=== PATIENT | female | born 1990 | race Caucasian/White ===

== ENCOUNTER 2024-03-09 19:12 | Emergency (ER) | payer BC, SELFPAY ==
[2024-03-09 19:13] VITALS: BP 109/72
[2024-03-09 20:00] VITALS: BP 110/88
--- NOTE | 2024-03-09 20:09 | ED.GENMED ---
History of Present Illness
General
Chief Complaint: Headache
Time Seen by Provider: 03/09/24 19:38
History of Present Illness
History of Present Illness:
Patient is a 34-year-old woman with history of migraines presenting to the emergency department with a headache. Patient states that about 1-1/2 weeks ago she had a medical and since then has been having some recurrent migraines. She does
state that they are due usually to hormone issues. This morning she woke up with a typical migraine that slowly worsened throughout the day. It is behind both her eyes. Some some nausea photophobia phonophobia. She did vomit a few times. No
fevers or chills. No neck pain. No numbness tingling. No weakness. No vision changes. No chest pain shortness of breath. She does state that the medical will successful and did have follow-up appointments. She did take her abortive
medication at home however it did not help the pain.
Past History
Past History
ED Past Medical History: Other (Migraine headaches); Negative Asthma, HTN, Hypercholesterolemia or NIDDM
ED Past Surgical History: None
Social History
Tobacco: Former smoker
Alcohol: None
Personal: Single
Living: alone
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
Phy Exam
Physical Exam
Physical Exam:
GENERAL: Lying under a blanket with eyes closed
HEENT: normocephalic, extraocular movements intact, moist oral mucosa
NECK: normal inspection
RESPIRATORY: no respiratory distress, clear to auscultation bilaterally
CARDIOVASCULAR: regular rate and rhythm
ABDOMEN/: soft, non-distended, non-tender to palpation, no rebound or guarding
EXTREMITIES: non-tender, no edema/swelling
NEUROLOGIC: alert and oriented x 3, cranial nerves II-XII intact, right upper extremity strength 5/5, left upper extremity strength 5/5, right lower extremity strength 5/5, left lower extremity strength 5/5, normal sensation to light touch, normal
[id number] and qxcr-[id number], gait not tested formally
SKIN: warm
Course
Orders/Labs/Results
Orders:
Orders
03/09/24 20:02
0.9% Sodium Chloride 1000 ml [Nss] 1,000 ml IV BOLUS
Diphenhydramine [Benadryl] 25 mg IV NOW STA
Ketorolac [Toradol] 15 mg IV NOW STA
Prochlorperazine [Compazine] 10 mg IV NOW STA
03/09/24 20:19
Basic Metabolic Panel Urgent
Complete Blood Count/No Diff Urgent
Abnormal Lab Results
03/09/24
20:19
MCH 31.4 H pg
(27.0-31.0)
03/09/24 20:19
03/09/24 20:19
Vital Signs
Initial and Last Documented VS:
Initial Vital Signs
Temp Pulse Resp BP Pulse Ox
98.3 F 70 18 109/72 100
03/09/24 19:13 03/09/24 19:13 03/09/24 19:13 03/09/24 19:13 03/09/24 19:13
Last Documented Vital Signs
Temp Pulse Resp BP Pulse Ox
98.3 F 70 18 109/72 100
03/09/24 19:13 03/09/24 19:13 03/09/24 19:13 03/09/24 19:13 03/09/24 19:13
MDM/Problems Addressed
Differential Diagnosis Includes:
Patient is a 34-year-old woman with history of migraines presenting to the emergency department with a headache. Vitals here are unremarkable and exam does not show any neurodeficits. Most likely migraine versus tension headache. No headache red
flags and neuroexam is reassuring. History and exam not consistent with intracranial bleed. Doubt infection. Will obtain blood work to check electrolytes given vomiting. Will give migraine cocktail. Considered CT scan however will hold off at
this time as this is a very typical migraine for her.
*Critical Care Note
Total Time (30-74mins, 75-104mins- exclusive of procedures): Not Applicable
Update Note
Update Note:
Blood work unremarkable. On reevaluation the headache has resolved. Will discharge patient at this time. All questions answered. Strict return precautions given
ED Attending Note
-
Portions of this chart may have been created with voice recognition software.� Occasional wrong word or��sound alike� substitutions may have occurred due to the inherent limitations of voice recognition software.
Discharge Plan
Departure
Patient Disposition: Home (Routine Discharge)
Date of Disposition: 03/09/24
Time of Disposition: 22:53
Patient with high blood pressure during this ER visit?: No
Discharge Problem:
Headache
Instructions: Headache, Adult (DC)
Prescriptions:
No Action
rizatriptan [Maxalt] 10 MG tablet
10 mg PO MDD mg PRN (Reason: headaches)
escitalopram oxalate 10 MG tablet
10 mg PO DAILY
Referrals:
NONE,* [Family Provider] -
Interventions
Interventions:
*Risk Screen - Suicide Last Done: 03/09/24 19:13
*General Assessment Last Done: 03/09/24 19:13
*Neglect/Abuse Screening Last Done: 03/09/24 19:13
ED- Neurological Assessment Last Done: 03/09/24 20:27
Discharge Date and Time
Print Language: ANDORRAN
[2024-03-09] MEDS: COMPAZINE 10 MG IV (20:15)
[2024-03-09] MEDS: NSS 1000 IV (20:17)
[2024-03-09] MEDS: TORADOL 15 MG IV (20:18)
[2024-03-09] MEDS: BENADRYL 25 MG IV (20:18)
[2024-03-09 20:27] LABS: Hematocrit 38.6 % (37.0-47.0); Hemoglobin 13.5 g/dL (12.0-16.0); Mean Corpuscular Hgb 31.4 pg (27.0-31.0); Mean Corpuscular Volume 89.8 fL (81.0-99.0); Mean Platelet Volume 9.2 fL (7.4-10.4); Platelet Count 231 10^3/uL (130-400); Red Cell Dist. Width 11.9 % (11.5-14.5); White Blood Cell Count 8.3 10^3/uL (4.8-10.8)
[2024-03-09 20:42] LABS: Blood Urea Nitrogen 14 mg/dl (7-17); Calcium 9.4 mg/dl (8.4-10.2); Carbon Dioxide 26 mmol/L (22-30); Chloride 104 mmol/L (98-107); Glucose 93 mg/dl (70-99); Potassium 4.3 mmol/L (3.5-5.1); Sodium 138 mmol/L (135-145); eGFR > 60.00
== END 2024-03-09 23:10 | disposition home or self-care (01) ==
LOC: EMR 19:12
PROVIDERS: EMERGENCY PHYSICIAN Student in an Organized Health Care Education/Training Program; FAMILY PHYSICIAN Internal Medicine
DX: R51.9 Headache, unspecified (principal); Z87.891 Personal history of nicotine dependence
CPT/HCPCS: 99284; 96374; 96375 ×2; 96361; 80048; 85027